=== PATIENT | female | born 2000 | race Caucasian/White ===

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

== ENCOUNTER 2018-02-18 03:14 | Inpatient (IN) | payer OTHER ==
[2018-02-18 05:29] LABS: HEMATOCRIT 36.6 % (36.0-47.0); HEMOGLOBIN 11.7 g/dl (12.0-15.5); MEAN CORPUSCULAR HEMOGLOBIN 26.2 pg (27.0-33.0); MEAN CORPUSCULAR VOLUME 81.9 fl (80.0-96.0); PLATELET COUNT, AUTOMATED 356 10^3/uL (150-450); RED BLOOD COUNT 4.47 10^6/uL (4.00-5.40); RED CELL DISTRIBUTION WIDTH 14.6 % (11.5-14.5); WHITE BLOOD COUNT 13.5 10^3/uL (4.0-10.0)
[2018-02-18] MEDS: LR 1,000 ML IV ×3 (07:02→23:02)
[2018-02-18] MEDS ORDERED: LR 1,000 ML IV (07:02)
[2018-02-18] MEDS ORDERED: OXYTOCIN 30 UNITS IN 0.9% NaCl 500ML IV BAG (J2590) As Ordered (07:09)
[2018-02-18] MEDS: OXYTOCIN DRIP 30 UNITS in APPROPRIATE DILUENT 1 EA IV (07:15)
[2018-02-18] MEDS: LACTATED RINGER'S 1000 ML IV (07:15)
[2018-02-18] MEDS ORDERED: FENTANYL 2MCG/ML ROPIVACAINE 0.2% IN 0.9% NACL 200ML IVBAG As Ordered (07:28)
[2018-02-18] MEDS: ACETAMINOPHEN 500 MG TAB PO (13:43)
[2018-02-18] MEDS ORDERED: LIDOCAINE 2% W/EPIN INJ 20ML **PRES FREE As Ordered (21:37)
[2018-02-18] MEDS: BICITRA 30ML SOLN UDC PO (21:40)
[2018-02-18] MEDS ORDERED: MORPHINE PRES-FREE INJ 10 MG/10 ML VIAL (J2274) As Ordered (22:19)
[2018-02-18] MEDS ORDERED: OXYTOCIN INJ 10 UNITS/ML VIAL (J2590) As Ordered ×5 (22:21)
[2018-02-18 22:23] LABS: CORD GAS ABE A -3.1; CORD GAS ABE V -7.5; CORD GAS HCO3 A 23.9 MEQ/L; CORD GAS HCO3 V 17.3 MEQ/L; CORD GAS O2 SAT A 39.6 %; CORD GAS O2 SAT V 53.3 %; CORD GAS PCO2 A 50.3 mmHg; CORD GAS PCO2 V 33.2 mmHg; CORD GAS PH A 7.295 UNITS; CORD GAS PH V 7.334 UNITS; CORD GAS PO2 A 20.2 mmHg; CORD GAS PO2 V 25.5 mmHg; CORD GAS SBC A 20.5 MEQ/L; CORD GAS SBC V 17.5 MEQ/L; CORD GAS TCO2 A 25.5 MEQ/L; CORD GAS TCO2 V 18.3 MEQ/L
[2018-02-18] MEDS ORDERED: METOCLOPRAMIDE INJ 10MG/2ML VIAL (J2765) IV (22:23)
[2018-02-18] MEDS ORDERED: NALBUPHINE HCL 10 MG/ML AMP (J2300) IV ×2 (22:23→23:00)
[2018-02-18] MEDS ORDERED: ONDANSETRON 4MG/2ML VIAL (J2405) IV ×2 (22:23→23:00)
[2018-02-18] MEDS ORDERED: NALOXONE INJ 0.4 MG/1 ML VIAL (J2310) IV ×2 (22:23)
[2018-02-18] MEDS: MEPERIDINE INJ 25 MG/ML VIAL (J2175) IV ×2 (22:45→22:52)
[2018-02-18] MEDS ORDERED: MEPERIDINE INJ 25 MG/ML VIAL (J2175) As Ordered (22:45)
[2018-02-18] MEDS ORDERED: fentaNYL 100 MCG/2 ML INJECTION (J3010) IV (23:00)
[2018-02-18] MEDS ORDERED: HYDROMORPHONE HCL 0.5 MG/ 0.5 ML SYRINGE (J1170 PER 1) IV (23:00)
[2018-02-18] MEDS ORDERED: METHYLERGONOVINE MALEATE 0.2 MG/ML VIAL (J2210) IM (23:30)
[2018-02-18] MEDS ORDERED: MEASLES,MUMPS,RUBELLA VACCINE INJ (MMR-II) (90707) SC (23:30)
[2018-02-18] MEDS ORDERED: METHYLERGONOVINE MALEATE 0.2 MG TAB PO (23:30)
[2018-02-18] MEDS ORDERED: MOM 30ML SUSPENSION UDC PO (23:30)
[2018-02-18] MEDS ORDERED: KETOROLAC 30 MG/ML VIAL (J1885) IV (23:30)
[2018-02-18] MEDS ORDERED: RHOGAM 300 MCG (1500 IU) INJ (J2790) IM (23:30)
[2018-02-18] MEDS: PERCOCET 5MG/325MG TAB PO (23:45)
[2018-02-18] MEDS ORDERED: PERCOCET 5MG/325MG TAB As Ordered (23:47)
[2018-02-19] MEDS: KETOROLAC 30 MG/ML VIAL (J1885) IV ×4 (00:48→18:39)
[2018-02-19] MEDS: LR 1,000 ML IV ×3 (07:02→23:02)
[2018-02-19 07:12] LABS: MEAN CORPUSCULAR HGB CONC 32.1 g/dl (32.0-36.5); MEAN CORPUSCULAR VOLUME 84.1 fl (80.0-96.0); PLATELET COUNT, AUTOMATED 237 10^3/uL (150-450); RED BLOOD COUNT 3.33 10^6/uL (4.00-5.40); RED CELL DISTRIBUTION WIDTH 14.6 % (11.5-14.5); WHITE BLOOD COUNT 18.5 10^3/uL (4.0-10.0)
[2018-02-19] MEDS: PRENATAL VITAMINS CHEWABLE TABLET PO (09:30)
[2018-02-19] MEDS: PERCOCET 5MG/325MG TAB PO (10:37)
[2018-02-19] MEDS: ANUSOL HC CREAM 30GM TOP (21:03)
[2018-02-19] MEDS: DOCUSATE SODIUM 100 MG CAP PO (21:03)
[2018-02-20] MEDS: IBUPROFEN 800 MG TAB PO ×3 (02:28→17:58)
[2018-02-20] MEDS: PERCOCET 5MG/325MG TAB PO ×2 (03:44→13:13)
[2018-02-20] MEDS: LR 1,000 ML IV ×2 (06:16→15:02)
[2018-02-20] MEDS: PRENATAL VITAMINS CHEWABLE TABLET PO (08:18)
[2018-02-21] MEDS: IBUPROFEN 800 MG TAB PO ×2 (02:07→10:30)
[2018-02-21] MEDS: PERCOCET 5MG/325MG TAB PO (02:08)
[2018-02-21] MEDS: ACETAMINOPHEN 500 MG TAB PO (07:56)
[2018-02-21] MEDS: PRENATAL VITAMINS CHEWABLE TABLET PO (07:56)
== END 2018-02-21 11:35 | disposition home or self-care (01) | DRG 766 ==
LOC: M LDO 03:14 → M OBS 02-19 05:39 → M LDI 03:57
PROVIDERS: Obstetrics & Gynecology
PROC: 10D00Z1 Extraction of Products of Conception, Low, Open Approach (ICD-10-PCS; principal; 2018-02-18 21:44)
PROC: 3E033VJ Introduction of Other Hormone into Peripheral Vein, Percutaneous Approach (ICD-10-PCS; 2018-02-18 21:44)
PROC: 10907ZC Drainage of Amniotic Fluid, Therapeutic from Products of Conception, Via Natural or Artificial Opening (ICD-10-PCS; 2018-02-18 21:44)
DX: O48.0 Post-term pregnancy (principal); O66.5 Attempted application of vacuum extractor and forceps; Z3A.41 41 weeks gestation of pregnancy; O64.0XX0 Obstructed labor due to incomplete rotation of fetal head, not applicable or unspecified; O77.0 Labor and delivery complicated by meconium in amniotic fluid; O75.81 Maternal exhaustion complicating labor and delivery; Z37.0 Single live birth